=== PATIENT | male | born 1995 | race Caucasian/White ===

== ENCOUNTER 2020-08-08 02:33 | Emergency (ER) | payer BC ==
[~2020-08-08] VITALS: Ht 188 cm; Wt 116.8 kg
[2020-08-08 02:45] VITALS: BP 135/104
== END 2020-08-08 03:45 | disposition home or self-care (01) ==
LOC: ER 02:34
DX: F41.0 Panic disorder [episodic paroxysmal anxiety] (principal); Z72.89 Other problems related to lifestyle
CPT/HCPCS: 93005; 99283